=== PATIENT | male | born 1980 | race Caucasian/White ===

== ENCOUNTER 2020-10-20 14:28 | Emergency (ER) | payer OTHER ==
[~2020-10-20] VITALS: Ht 185.4 cm; Wt 90.7 kg
[~2020-10-20 14:28] MED LIST: GABAPENTIN600 MG PO
--- OUTSIDE RECORDS SUMMARY | 2020-10-20 14:32 | XMS ---
PreManage Notification: NAZARIO CANALES Security Medical Office Receptionist Assistant Events No recent Security Events currently on file CRITERIA MET - Group Notification CARE PROVIDERS There are no care providers on record at this time. Pramod has no Care Guidelines for this patient. Jc VISIT COUNT (12 MO.) 1 QING Christianson TOTAL 1 NOTE: Visits indicate total known visits. ED/C VISIT TRACKING (12 MO.) 10/20/2020 14:29 QING Carranza OR TYPE: Emergency COMPLAINT: - L EAR PAIN INPATIENT VISIT TRACKING (12 MO.) No inpatient visits to display in this time frame [email or web address]
== END 2020-10-20 15:24 | disposition home or self-care (01) ==
LOC: ED 14:28
PROC: 09C4XZZ Extirpation of Matter from Left External Auditory Canal, External Approach (ICD-10-PCS; principal; 2020-10-20)
DX: T16.2XXA Foreign body in left ear, initial encounter (principal); Z87.891 Personal history of nicotine dependence
CPT/HCPCS: 69200; 99283-25